=== PATIENT | male | born 2000 | race African-American/Black ===

== ENCOUNTER 2023-11-24 10:09 | Emergency (ER) | payer OTHER ==
[2023-11-24 10:23] VITALS: RESP 18; TEMP 97.7; BMI 22.6
[2023-11-24] MEDS ORDERED: METOCLOPRAMIDE HCL INJECTION 10 MG/2 ML VIAL IVPUSH ONE (11:36)
[2023-11-24 11:44] LABS: BASO % 0.7 % (0-2.0); EOS % 1.8 % (0-4.5); HEMATOCRIT 43.2 % (35.4-49); HEMOGLOBIN 15.1 GM/dL (11.7-16.9); MCH 33.4 pg (25.7-33.7); MCHC 34.9 g/dl (32.0-35.9); MEAN CELL VOLUME 95.8 fl (80-96); MEAN PLT VOLUME 8.6 fl (7.5-11.1); MONO % 7.7 % (3.8-10.2); NEUT % 74.8 % (42.8-82.8); PLATELET COUNT 253 10^3/uL (134-434); RBC 4.51 M/mm3 (4.00-5.60); RDW 12.5 % (11.9-15.9); WHITE BLOOD COUNT 9.8 K/mm3 (4.0-10.0)
[2023-11-24] MEDS: SODIUM PHOSPHATE/NA BIPHOS 133 ML ENEMA RC ONE (11:45)
[2023-11-24 12:07] LABS: POTASSIUM 3.8 mmol/L (3.5-5.1)
[2023-11-24 12:08] LABS: CALCIUM 9.8 mg/dL (8.5-10.1)
[2023-11-24 12:09] LABS: ALBUMIN 4.1 g/dl (3.4-5.0)
[2023-11-24 12:12] LABS: CREATININE 0.9 mg/dL (0.55-1.3)
[2023-11-24 12:14] LABS: TOT PROT 7.7 g/dl (6.4-8.2)
[2023-11-24] MEDS ORDERED: DEXAMETHASONE SOD PHOSPHATE 10 MG/1 ML VIAL ONE (13:12)
[2023-11-24] MEDS: DEXAMETHASONE SOD PHOSPHATE 10 MG/1 ML VIAL IVPUSH ONE (13:15)
[2023-11-24] MEDS ORDERED: TAMSULOSIN HCL 0.4 MG CAP ONE (15:01)
[2023-11-24] MEDS ORDERED: KETOROLAC TROMETHAMINE 30 MG/1 ML VIAL ONE (15:02)
[2023-11-24] MEDS: KETOROLAC TROMETHAMINE 30 MG/1 ML VIAL IVPUSH ONE (15:11)
[2023-11-24] MEDS: SODIUM CHLORIDE 0.9% 500 ML INFUS.BAG IV ONE (15:11)
[2023-11-24] MEDS: TAMSULOSIN HCL 0.4 MG CAP PO ONE (15:11)
[2023-11-24 15:29] LABS: EPI CELLS 3 /uL (0-25.1); HYALINE CASTS 1 /uL (0-3.1); PH,URINE 8.5 (5.0-8.0); URINE APPEARANCE CLEAR; URINE BACTERIA 6 /uL (0-1359); URINE BILIRUBIN NEGATIVE (NEGATIVE); URINE COLOR YELLOW; URINE GLUCOSE (UA) NEGATIVE (NEGATIVE); URINE KETONE 1+ (NEGATIVE); URINE LEUK ESTERASE NEGATIVE (NEGATIVE); URINE NITRITE NEGATIVE (NEGATIVE); URINE PROTEIN TRACE (NEGATIVE); URINE RBC 144 /uL (0-23.9); URINE WBC 16 /uL (0-25.8)
[2023-11-24 15:38] VITALS: BP 125/73; PULSE 80
== END 2023-11-24 15:44 | disposition home or self-care (01) ==
LOC: JER 10:09
PROC: 3E0333Z Introduction of Anti-inflammatory into Peripheral Vein, Percutaneous Approach (ICD-10-PCS; principal; 2023-11-24)
PROC: 3E033GC Introduction of Other Therapeutic Substance into Peripheral Vein, Percutaneous Approach (ICD-10-PCS; 2023-11-24)
DX: R10.9 Unspecified abdominal pain (principal); K59.00 Constipation, unspecified; N20.0 Calculus of kidney
CPT/HCPCS: 36415; 74018-TC-FY; 74177-TC; 80053; 81003; 85025; 87086; 99285-25; J1100

== ENCOUNTER 2024-06-19 13:44 | Emergency (ER) | payer OTHER ==
[2024-06-19 14:09] VITALS: BP 113/77; PULSE 76; RESP 18; TEMP 98.3; BMI 21.7
[2024-06-19 15:24] LABS: BASO % 0.5 % (0-2.0); EOS % 1.5 % (0-4.5); HEMATOCRIT 44.7 % (35.4-49); HEMOGLOBIN 15.2 GM/dL (11.7-16.9); LYMPH % 13.3 % (8-40); MCHC 34.1 g/dl (32.0-35.9); MEAN CELL VOLUME 96.8 fl (80-96); MEAN PLT VOLUME 9.4 fl (7.5-11.1); MONO % 8.6 % (3.8-10.2); NEUT % 76.1 % (42.8-82.8); PLATELET COUNT 206 10^3/uL (134-434); RBC 4.62 M/mm3 (4.00-5.60); RDW 12.6 % (11.9-15.9); WHITE BLOOD COUNT 11.4 K/mm3 (4.0-10.0)
[2024-06-19 15:26] LABS: EPI CELLS 0 /uL (0-25.1); HYALINE CASTS 0 /uL (0-3.1); PH,URINE 8.5 (5.0-8.0); URINE APPEARANCE CLEAR; URINE BACTERIA 1 /uL (0-1359); URINE BILIRUBIN NEGATIVE (NEGATIVE); URINE COLOR YELLOW; URINE GLUCOSE (UA) NEGATIVE (NEGATIVE); URINE KETONE NEGATIVE (NEGATIVE); URINE LEUK ESTERASE NEGATIVE (NEGATIVE); URINE NITRITE NEGATIVE (NEGATIVE); URINE PROTEIN NEGATIVE (NEGATIVE); URINE RBC 1425 /uL (0-23.9); URINE UROBILINOGEN 0.2 mg/dL (0.2-1.0); URINE WBC 5 /uL (0-25.8)
[2024-06-19 15:55] LABS: ALBUMIN 4.7 g/dl (3.4-5.0); BLOOD UREA NITROGEN 12.7 mg/dL (7-18); CALCIUM 10.1 mg/dL (8.5-10.1)
[2024-06-19 15:58] LABS: CREATININE 0.9 mg/dL (0.55-1.3)
[2024-06-19 16:00] LABS: BILIRUBIN,TOTAL 0.7 mg/dL (0.2-1); TOT PROT 7.9 g/dl (6.4-8.2)
[2024-06-19 17:58] LABS: HIV INTERPRETATION NEGATIVE (NEGATIVE)
== END 2024-06-19 17:55 | disposition home or self-care (01) ==
LOC: JER 13:44
DX: N23 Unspecified renal colic (principal); R31.9 Hematuria, unspecified; R10.9 Unspecified abdominal pain
CPT/HCPCS: 36415; 74176-TC; 80053; 81003; 85025; 86803; 87086; 87389; 99284-25